=== PATIENT | male | born 1990 | race African-American/Black ===

== ENCOUNTER → 2020-07-03 | Outpatient (CLI) | payer OTHER | END | disposition home or self-care (01) | LOC: LAB 12:26 | PROVIDERS: ATTEND Neurological Surgery | DX: Z01.812 Encounter for preprocedural laboratory examination (principal); Z20.822 Contact with and (suspected) exposure to COVID-19 | CPT/HCPCS: 87426 ==

== ENCOUNTER 2024-04-27 17:40 | Emergency (ER) | payer MEDICAID ==
[~2024-04-27] VITALS: Ht 180.3 cm; Wt 96.0 kg
[~2024-04-27 17:40] MED LIST: DOCU-155 MT; SENN8.6T21 MT
[2024-04-27 17:43] VITALS: O2SAT 99
[2024-04-27 18:06] VITALS: BP 124/75; PULSE 100; RESP 16; TEMP 36.8; O2SAT 96
[2024-04-27] MEDS ORDERED: TC1C15 TP (20:35)
[2024-04-27] MEDS ORDERED: DIPH35CR TP (20:36)
== END 2024-04-27 21:10 | disposition home or self-care (01) ==
LOC: ER 17:40
DX: L25.9 Unspecified contact dermatitis, unspecified cause (principal); J45.909 Unspecified asthma, uncomplicated; F12.90 Cannabis use, unspecified, uncomplicated; Z98.890 Other specified postprocedural states; Z79.899 Other long term (current) drug therapy
CPT/HCPCS: 99283